=== PATIENT | male | born 1965 | race Asian ===

== ENCOUNTER 2017-07-14 10:02 | Observation (INO) | payer OTHER ==
[2017-07-14] MEDS ORDERED: FAMOTIDINE IV 20 MG/12 ML VIAL IVPB ONE (10:55)
[2017-07-14] MEDS ORDERED: methylPREDNISolone NA SUCC 125 MG/2 ML VIAL IVPUSH ONE (10:55)
--- NOTE | 2017-07-14 10:55 | PDOC ---
History of Present Illness - General History Source: Patient Exam Limitations: No Limitations - History of Present Illness Initial Comments: 07/14/17 11:05 Patient is a 51-year-old male with no past medical history, no known ALLERGIES, who presents to the emergency department today complaining of 2 days of facial swelling. Patient states that he ate some Arabic food 2 days ago and noticed that his face swelled up and he had a rash on his back and chest. He states that he took Benadryl every 6 hours yesterday (07/13/16) with little results. Denies difficulty breathing, shortness of breath, shortness of breath with exertion, and tongue swelling. States he has been able to eat without difficulty. Denies fevers, chills, chest pain, throat pain, ear pain, nausea, vomiting and diarrhea. <Marley Jose - Last Filed: 07/15/17 12:03> <Ping Zhang - Last Filed: 07/17/17 14:13> - General Chief Complaint: Allergic Reaction Stated Complaint: SWOLLEN FACE Time Seen by Provider: 07/14/17 10:20 Past History - Travel Traveled outside of the country in the last 30 days: No Close contact w/someone who was outside of country & ill: No - Past Medical History COPD: No DVT: No - Suicide/Smoking/Psychosocial Hx Smoking History: Never smoked Have you smoked in the past 12 months: No Information on smoking cessation initiated: No Hx Alcohol Use: No Drug/Substance Use Hx: No Substance Use Type: None <Marley Jose - Last Filed: 07/15/17 12:03> <Ping Zhang - Last Filed: 07/17/17 14:13> - Past Medical History Allergies/Adverse Reactions: Allergies Allergy/AdvReac Type Severity Reaction Status Date / Time No Known Allergies Allergy Verified 07/14/17 10:03 Home Medications: Ambulatory Orders Glipizide [Glipizide Xl] 2.5 mg PO BID 07/14/17 Metformin HCl 1,000 mg PO BID 07/14/17 Simvastatin 20 mg PO DAILY 07/14/17 Amlodipine Besylate [Norvasc -] 5 mg PO DAILY 30 Days #50 tablet 07/16/17 Metoprolol Succinate [Toprol XL -] 25 mg PO DAILY tab.sr.24h 07/16/17 Metoprolol Succinate [Toprol XL -] 25 mg PO DAILY 30 Days #30 tab.sr.24h MDD 1 07/16/17 hydrOXYzine HCL [Atarax -] 25 mg PO TID PRN 7 Days #20 tablet MDD 3 07/16/17 Review of Systems - Review of Systems Able to Perform ROS?: Yes Comments:: 07/14/17 11:07 CONSTITUTIONAL: Absent: fever, chills, diaphoresis, generalized weakness, malaise, loss of appetite HEENT: Absent: rhinorrhea, nasal congestion, throat pain, throat swelling, difficulty swallowing, mouth swelling, ear pain, eye pain, visual Changes CARDIOVASCULAR: Absent: chest pain, loss of consciousness, palpitations, irregular heart rate, peripheral edema RESPIRATORY: Absent: cough, shortness of breath, dyspnea with exertion, orthopnea, wheezing, stridor, hemoptysis GASTROINTESTINAL: Absent: abdominal pain, abdominal distension, nausea, vomiting, diarrhea, constipation, melena, hematochezia GENITOURINARY: Absent: dysuria, frequency, urgency, hesitancy, hematuria, flank pain, genital pain MUSCULOSKELETAL: Absent: myalgia, arthralgia, joint swelling SKIN: Present: Facial swelling, rash Absent: rash, itching, pallor HEMATOLOGIC/IMMUNOLOGIC: Absent: easy bleeding, easy bruising, lymphadenopathy, frequent infections ENDOCRINE: Absent: unexplained weight gain, unexplained weight loss, heat intolerance, cold intolerance NEUROLOGIC: Absent: headache, focal weakness or paresthesias, dizziness, unsteady gait, seizure, mental status changes, bladder or bowel incontinence PSYCHIATRIC: Absent: anxiety, depression, suicidal or homicidal ideation, hallucinations. Is the patient limited Kyrgyz proficient: No <Marley Jose - Last Filed: 07/15/17 12:03> *Physical Exam - Vital Signs Last Vital Signs Temp Pulse Resp BP Pulse Ox 98.2 F 118 H 18 159/92 100 07/14/17 10:05 07/14/17 10:05 07/14/17 10:05 07/14/17 10:05 07/14/17 10:05 - Physical Exam Comments: 07/14/17 11:07 GENERAL: Well developed, well nourished. Awake and alert. No acute distress. HEENT: Normocephalic, atraumatic. PERRLA, EOMI. No conjunctival pallor. Sclera are non- icteric. Moist mucous membranes. Oropharynx with mild swelling to the uvula. No tongue swelling. Ears grossly swollen. NECK: Supple. Grossly swollen anteriorly and posteriorly. Full ROM. No JVD. Carotid pulses 2+ and symmetric, without bruits. No thyromegaly. No lymphadenopathy. CARDIOVASCULAR: Regular rate and rhythm. No murmurs, rubs, or gallops. Distal pulses are 2+ and symmetric. PULMONARY: No evidence of respiratory distress. Lungs clear to auscultation bilaterally. No wheezing, rales or rhonchi. ABDOMINAL: Soft. Non-tender. Non-distended. No rebound or guarding. No organomegaly. Normoactive bowel sounds. MUSCULOSKELETAL Normal range of motion at all joints. No bony deformities or tenderness. No CVA tenderness. EXTREMITIES: No cyanosis. No clubbing. No edema. No calf tenderness. SKIN: Warm and dry. Normal capillary refill. Erythematous rash to chest and upper back , forearm's bilaterally. No jaundice. NEUROLOGICAL: Alert, awake, appropriate. Cranial nerves 2-12 intact. No deficits to light touch and temperature in face, upper extremities and lower extremities. No motor deficits in the in face, upper extremities and lower extremities. Normoreflexic in the upper and lower extremities. Normal speech. Toes are down- going bilaterally. Gait is normal without ataxia. PSYCHIATRIC: Cooperative. Good eye contact. Appropriate mood and affect. <Marley Jose - Last Filed: 07/15/17 12:03> - Vital Signs Last Vital Signs Temp Pulse Resp BP Pulse Ox 98.2 F 118 H 18 159/92 100 07/14/17 10:05 07/14/17 10:05 07/14/17 10:05 07/14/17 10:05 07/14/17 10:05 <Ping Zhang - Last Filed: 07/17/17 14:13> ED Treatment Course - LABORATORY CBC & Chemistry Diagram: 07/15/17 06:55 07/15/17 06:55 <Marley Jose - Last Filed: 07/15/17 12:03> - LABORATORY CBC & Chemistry Diagram: 07/16/17 07:00 07/16/17 07:00 - ADDITIONAL ORDERS Additional order review: Laboratory Results 07/14/17 11:04 Sodium 136 Potassium 4.5 Chloride 101 Carbon Dioxide 26 Anion Gap 9 BUN 14 Creatinine 0.9 Creat Clearance w eGFR > 60 Random Glucose 366 H* Calcium 8.8 Total Bilirubin 0.7 AST 19 ALT 61 Alkaline Phosphatase 102 Total Protein 7.5 Albumin 3.9 07/14/17 11:04 RBC 5.38 MCV 84.7 MCHC 32.8 RDW 13.0 MPV 9.3 Neutrophils % 59.1 Lymphocytes % 22.1 Monocytes % 8.6 Eosinophils % 10.0 H Basophils % 0.2 - Medications Given in the ED: ED Medications Discontinued Medications Generic Name Dose Route Start Last Admin Trade Name Freq PRN Reason Stop Dose Admin Diphenhydramine HCl 50 mg 07/14/17 10:55 07/14/17 11:05 Benadryl Injection - IVPUSH 07/14/17 10:56 50 mg ONCE ONE Administration Famotidine 20 mg in 12 mls @ 144 mls/hr 07/14/17 10:55 07/14/17 11:32 Pepcid 20 Mg/12 Ml Push IVPB 07/14/17 10:59 144 mls/hr ONCE ONE Administration Sodium Chloride 1,000 mls @ 1,000 mls/hr 07/14/17 10:56 07/14/17 11:00 Normal Saline - IV 07/14/17 11:55 1,000 mls/hr ASDIR STA Administration Insulin Human Regular 5 units 07/14/17 12:33 07/14/17 12:48 Novolin R Vial *For Ivpush Or Iv Drip Only* IVPUSH 07/14/17 12:34 5 units ONCE ONE Administration Methylprednisolone Sodium Succinate 125 mg 07/14/17 10:55 07/14/17 11:15 Solu-Medrol - IVPUSH 07/14/17 10:56 125 mg ONCE ONE Administration <Ping Zhang - Last Filed: 07/17/17 14:13> Medical Decision Making - Medical Decision Making 07/14/17 11:09 Patient is a 51-year-old male with no past medical history, no known ALLERGIES who presents with gross facial/neck swelling for 2 days. Given mild uvular swelling we will keep the patient for observation for 6 hours. We'll also give antihistamines. Patient is currently stable in the emergency department and afebrile. 1.CBC, CMP 2.IV Solu-Medrol, IV Benadryl, Pepcid 3.IV fluids 4.reevaluate 07/14/17 12:37 Lab called with glucose of 366. Pt does not have history of diabetes. Will administer a second liter of fluids and 5 units of Iv insulin. Facial swelling relatively unchanged at this time. 07/14/17 15:46 Facial swelling improved, however swelling of the neck still present. Uvula appears better at this time. Pt. resting comfortably, VSS, breathing easily. 07/14/17 17:[address] Martínez[address] Dr[address] Garlanded financial institution branch manager for him. Spoke with Dr. Ramey and states will call back shortly 07/14/17 18:[address] Ramey. Case discussed and agreed to place patient in observation for further management of his facial edema. 50mg Benadryl given at this time. <Marley Jose - Last Filed: 07/15/17 12:03> *DC/Admit/Observation/Transfer - Discharge Dispostion Admit: Yes <Marley Jose - Last Filed: 07/15/17 12:03> - Attestations Physician Attestion: 07/14/17 13:02 Examined at bedside with BRIANA Jose. Pt with significant swelling of face, ears , neck. Also with slight swelling of uvula, but with patent airway. Will observe in ED for at least 6 hrs. If improved will DC, if not, will place on obs for allergic reaction. 07/14/17 17:22 Pt with continued swelling of the neck and ears. Will plan for obs. <Ping Zhang - Last Filed: 07/17/17 14:13> Diagnosis at time of Disposition: Facial edema Allergic reaction Qualifiers: Encounter type: initial encounter Qualified Code(s): T78.40XA - Allergy, unspecified, initial encounter - Discharge Dispostion Disposition: HOME Condition at time of disposition: Stable
[2017-07-14] MEDS ORDERED: SODIUM CHLORIDE 1,000 ML IV STA ×2 (10:56→12:33)
[2017-07-14] MEDS ORDERED: FAMOTIDINE 20 MG/50 ML IVPB 20 MG/50 ML MG IVPB ONE (11:10)
[2017-07-14] MEDS ORDERED: methylPREDNISolone NA SUCC 125 MG/2 ML VIAL ONE (11:10)
[2017-07-14 11:13] LABS: BASO % 0.2 % (0-2.0); HEMATOCRIT 45.6 % (35.4-49); LYMPH % 22.1 % (8-40); MCH 27.8 pg (25.7-33.7); MCHC 32.8 g/dl (32.0-35.9); MEAN CELL VOLUME 84.7 fl (80-96); MEAN PLT VOLUME 9.3 fl (7.5-11.1); MONO % 8.6 % (3.8-10.2); NEUT % 59.1 % (42.8-82.8); PLATELET COUNT 285 K/MM3 (134-434); RBC 5.38 M/mm3 (4.00-5.60); WHITE BLOOD COUNT 10.1 K/mm3 (4.0-10.0)
[2017-07-14 12:02] LABS: ALBUMIN 3.9 g/dl (3.4-5.0); ANION GAP 9 (8-16); BLOOD UREA NITROGEN 14 mg/dL (7-18); CALCIUM 8.8 mg/dL (8.5-10.1); CHLORIDE 101 mmol/L (98-107); CO2 26 mmol/L (21-32); POTASSIUM 4.5 mmol/L (3.5-5.1); SGPT/ALT 61 U/L (12-78); SODIUM 136 mmol/L (136-145)
[2017-07-14 12:04] LABS: ALK PHOS 102 U/L (45-117); BILIRUBIN,TOTAL 0.7 mg/dL (0.2-1.0); CREATININE 0.9 mg/dL (0.7-1.3); SGOT/AST 19 U/L (15-37); TOT PROT 7.5 g/dl (6.4-8.2)
[2017-07-14 12:33] LABS: GLUCOSE,RANDOM 366 mg/dL (74-106)
[2017-07-14] MEDS ORDERED: INSULIN REGULAR HUMAN 100 UNITS/ML *VIAL IVPUSH ONE (12:33)
[2017-07-14] MEDS ORDERED: INSULIN REGULAR HUMAN 100 UNITS/ML *VIAL ONE ×2 (12:42→12:44)
[2017-07-14] MEDS: SODIUM CHLORIDE 1,000 ML IV SCH (19:17)
--- NOTE | 2017-07-14 21:16 | HP ---
Admitting History and Physical - Primary Care Physician PCP: Richa Martínez - Admission Chief Complaint: Facial swelling and erythema History of Present Illness: 51 yrs old man , obese H/O T2DM, HTN, no known food, medication or envioronmental allergies, present to ED with 1 day H/O erythematoush rash, swelling and itching , started yesterday am , initially it was on trunk gradually extend around neck, face, ear lobule, lips, no tongue swellings, difficulty in swallowing, SOB or feeling fullness in the throat as per patient, night before on Monday PM patient had Chines food containing shrimps,in the Ed patient received Famotidine, IV solumedrol, Benadry but remained symptomatic so admitted for further management, at the time of examination denies any SOB, Chest Pain, palpitation, SOB, throat congestion , drooling or wheezing. History Source: Patient Limitations to Obtaining History: No Limitations - Past Medical History Cardiovascular: Yes: HTN Endocrine: Yes: Diabetes Insipidus - Smoking History Smoking history: Never smoked Have you smoked in the past 12 months: No - Alcohol/Substance Use Hx Alcohol Use: No - Social History Usual Living Arrangement: Yes: With Spouse ADL: Independent History of Recent Travel: No Home Medications - Allergies Allergies/Adverse Reactions: Allergies Allergy/AdvReac Type Severity Reaction Status Date / Time No Known Allergies Allergy Verified 07/14/17 10:03 - Home Medications Home Medications: Ambulatory Orders Glipizide [Glipizide Xl] 2.5 mg PO BID 07/14/17 Metformin HCl 1,000 mg PO BID 07/14/17 Simvastatin 20 mg PO DAILY 07/14/17 Amlodipine Besylate [Norvasc -] 5 mg PO DAILY 30 Days #50 tablet 07/16/17 Metoprolol Succinate [Toprol XL -] 25 mg PO DAILY tab.sr.24h 07/16/17 Metoprolol Succinate [Toprol XL -] 25 mg PO DAILY 30 Days #30 tab.sr.24h MDD 1 07/16/17 hydrOXYzine HCL [Atarax -] 25 mg PO TID PRN 7 Days #20 tablet MDD 3 07/16/17 Family Disease History - Family Disease History Family History: Unremarkable Physical Examination Vital Signs: Vital Signs Temperature 98.5 F 07/14/17 14:20 Pulse Rate 119 H 07/14/17 18:59 Respiratory Rate 20 07/14/17 18:59 Blood Pressure 150/85 07/14/17 18:59 O2 Sat by Pulse Oximetry (%) 98 07/14/17 18:59 Middle aged man not in distress still c/o erythema around shoulder and neck HEENT: Diffuse erythma around trunk, back and neck with ,swelling of ear lobule NECK: Diffuse erythema CHEST: CTA B/L CVS: SaS2 R no m/g/r ABD: No distention, non tender Bs + EXT: diffuse erythematous rash 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 Constitutional: Yes: Well Nourished, No Distress, Anxious Eyes: Yes: Conjunctiva Clear, EOM Intact Neck: Yes: Supple, Trachea Midline Cardiovascular: Yes: Regular Rate and Rhythm, S1, S2 Respiratory: Yes: CTA Bilaterally Gastrointestinal: Yes: Normal Bowel Sounds, Soft ...Rectal Exam: Yes: Deferred Labs: CBC, BMP 07/14/17 11:04 07/14/17 11:04 Laboratory Results - last 24 hr 07/14/17 07/14/17 11:04 11:04 WBC 10.1 H RBC 5.38 Hgb 15.0 Hct 45.6 MCV 84.7 MCH 27.8 MCHC 32.8 RDW 13.0 Plt Count 285 MPV 9.3 Neutrophils % 59.1 Lymphocytes % 22.1 Monocytes % 8.6 Eosinophils % 10.0 H Basophils % 0.2 Sodium 136 Potassium 4.5 Chloride 101 Carbon Dioxide 26 Anion Gap 9 BUN 14 Creatinine 0.9 Creat Clearance w eGFR > 60 Random Glucose 366 H* Calcium 8.8 Total Bilirubin 0.7 AST 19 ALT 61 Alkaline Phosphatase 102 Total Protein 7.5 Albumin 3.9 Problem List - Problems (1) Urticaria Assessment/Plan: Cont benadryl, famotidine observe for airways Code(s): L50.9 - URTICARIA, UNSPECIFIED (2) Uncontrolled diabetes mellitus Assessment/Plan: hold Po Meds cont correction dose insulin F/U HBA1C level Code(s): E11.65 - TYPE 2 DIABETES MELLITUS WITH HYPERGLYCEMIA Qualifiers: Diabetes mellitus type: type 2 (3) HTN (hypertension) Assessment/Plan: Add amlodipine Hold benzepril Code(s): I10 - ESSENTIAL (PRIMARY) HYPERTENSION Qualifiers: Hypertension type: essential hypertension Qualified Code(s): I10 - Essential (primary) hypertension (4) Obesity Assessment/Plan: F/U as out patient, nutritional counselling Code(s): E66.9 - OBESITY, UNSPECIFIED Qualifiers: Body mass index: BMI 32.0-32.9
[2017-07-14] MEDS: FAMOTIDINE 20 MG/50 ML IVPB 20 MG/50 ML MG IVPB SCH (22:44)
[2017-07-14 23:09] VITALS: BMI 35.7
[2017-07-15] MEDS ORDERED: diphenhydrAMINE HCL 25 MG CAPSULE (FP) PO PRN (01:07)
[2017-07-15] MEDS: INSULIN SLIDING SCALE (NOVOLOG) 1 VIAL SQ SCH ×3 (06:01→16:41)
[2017-07-15 08:14] LABS: BASO % 0.1 % (0-2.0); EOS % 0.6 % (0-4.5); HEMATOCRIT 40.4 % (35.4-49); LYMPH % 13.3 % (8-40); MCH 27.1 pg (25.7-33.7); MCHC 32.1 g/dl (32.0-35.9); MEAN CELL VOLUME 84.4 fl (80-96); MEAN PLT VOLUME 9.8 fl (7.5-11.1); MONO % 7.5 % (3.8-10.2); NEUT % 78.5 % (42.8-82.8); PLATELET COUNT 265 K/MM3 (134-434); RBC 4.79 M/mm3 (4.00-5.60); RDW 12.8 % (11.9-15.9); WHITE BLOOD COUNT 16.8 K/mm3 (4.0-10.0)
[2017-07-15 08:42] LABS: ANION GAP 10 (8-16); BLOOD UREA NITROGEN 10 mg/dL (7-18); CALCIUM 8.7 mg/dL (8.5-10.1); CHLORIDE 107 mmol/L (98-107); CO2 23 mmol/L (21-32); GLUCOSE,RANDOM 174 mg/dL (74-106); POTASSIUM 4.1 mmol/L (3.5-5.1); SODIUM 140 mmol/L (136-145)
[2017-07-15 08:53] LABS: CREATININE 0.7 mg/dL (0.7-1.3)
[2017-07-15] MEDS ORDERED: FLU VACCINE QUAD 60 MCG/0.5 ML (MDV 17-18) IM ONE (09:00)
[2017-07-15] MEDS: FAMOTIDINE 20 MG/50 ML IVPB 20 MG/50 ML MG IVPB SCH ×2 (12:41→21:25)
[2017-07-15] MEDS: SODIUM CHLORIDE 1,000 ML IV SCH ×2 (12:41→21:27)
--- NOTE | 2017-07-15 19:48 | PN ---
Progress Note, Physician Chief Complaint: feels improved - Current Medication List Current Medications: Active Medications Diphenhydramine HCl (Benadryl -) 25 mg PO Q6H PRN PRN Reason: FOR ITCHING Famotidine/Sodium Chloride (Pepcid 20 Mg Premixed Ivpb -) 20 mg in 50 mls @ 100 mls/hr IVPB BID ZAHEER Last Admin: 07/15/17 12:41 Dose: 100 mls/hr Sodium Chloride (Normal Saline -) 1,000 mls @ 75 mls/hr IV ASDIR [facility] Last Admin: 07/15/17 12:41 Dose: 75 mls/hr Insulin Aspart (Novolog Vial Sliding Scale -) 1 vial SQ TIDAC ZAHEER PRN Reason: Protocol Last Admin: 07/15/17 16:41 Dose: 4 unit - Objective Vital Signs: Vital Signs Temperature 98.2 F 07/15/17 19:01 Pulse Rate 107 H 07/15/17 19:01 Respiratory Rate 21 07/15/17 19:01 Blood Pressure 150/88 07/15/17 19:01 O2 Sat by Pulse Oximetry (%) 99 07/15/17 10:00 Middle aged man not in distress still c/o erythema around shoulder and neck HEENT: Diffuse erythma around trunk, back and neck with ,swelling of ear lobule NECK: Diffuse erythema CHEST: CTA B/L CVS: SaS2 R no m/g/r ABD: No distention, non tender Bs + EXT: diffuse erythematous rash 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: 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 non focal Labs: CBC, BMP 07/15/17 06:55 07/15/17 06:55 Problem List - Problems (1) Urticaria Assessment/Plan: Cont benadryl, famotidine observe for airways Code(s): L50.9 - URTICARIA, UNSPECIFIED (2) Uncontrolled diabetes mellitus Assessment/Plan: hold Po Meds cont correction dose insulin F/U HBA1C level Code(s): E11.65 - TYPE 2 DIABETES MELLITUS WITH HYPERGLYCEMIA Qualifiers: Diabetes mellitus type: type 2 (3) HTN (hypertension) Assessment/Plan: Add amlodipine Hold benzepril Code(s): I10 - ESSENTIAL (PRIMARY) HYPERTENSION Qualifiers: Hypertension type: essential hypertension Qualified Code(s): I10 - Essential (primary) hypertension (4) Obesity Assessment/Plan: F/U as out patient, nutritional counselling Code(s): E66.9 - OBESITY, UNSPECIFIED Qualifiers: Body mass index: BMI 32.0-32.9
[2017-07-15] MEDS ORDERED: hydrOXYzine HCL 25 MG TABLET (FP) PO PRN (19:50)
[2017-07-15] MEDS ORDERED: ATORVASTATIN CA 10 MG TABLET (FP) PO SCH (22:00)
[2017-07-16] MEDS: SODIUM CHLORIDE 1,000 ML IV SCH (06:16)
[2017-07-16] MEDS: INSULIN SLIDING SCALE (NOVOLOG) 1 VIAL SQ SCH ×2 (06:16→11:42)
[2017-07-16 08:06] LABS: ANION GAP 8 (8-16); BLOOD UREA NITROGEN 11 mg/dL (7-18); CALCIUM 8.1 mg/dL (8.5-10.1); CHLORIDE 107 mmol/L (98-107); CO2 24 mmol/L (21-32); CREATININE 0.7 mg/dL (0.7-1.3); GLUCOSE,RANDOM 157 mg/dL (74-106); POTASSIUM 4.1 mmol/L (3.5-5.1); SODIUM 139 mmol/L (136-145)
[2017-07-16 08:09] LABS: BASO % 0.6 % (0-2.0); EOS % 11.2 % (0-4.5); HEMATOCRIT 41.6 % (35.4-49); HEMOGLOBIN 13.7 GM/dL (11.7-16.9); LYMPH % 25.1 % (8-40); MCH 27.6 pg (25.7-33.7); MEAN CELL VOLUME 83.7 fl (80-96); MEAN PLT VOLUME 9.5 fl (7.5-11.1); MONO % 7.2 % (3.8-10.2); NEUT % 55.9 % (42.8-82.8); PLATELET COUNT 248 K/MM3 (134-434); RBC 4.97 M/mm3 (4.00-5.60); RDW 13.1 % (11.9-15.9); WHITE BLOOD COUNT 11.5 K/mm3 (4.0-10.0)
[2017-07-16] MEDS ORDERED: amLODIPine BESYLATE 5 MG TABLET (FP) PO SCH (10:00)
[2017-07-16] MEDS: FAMOTIDINE 20 MG/50 ML IVPB 20 MG/50 ML MG IVPB SCH (10:15)
[2017-07-16 10:52] VITALS: BP 148/80; PULSE 102; TEMP 98.6
[2017-07-16] MEDS ORDERED: INSULIN (NOVOLOG) ASPART 100 UNITS/ML 10ML VIAL ONE (11:57)
--- NOTE | 2017-07-16 13:11 | DS ---
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 non focal Labs: CBC, BMP 07/16/17 07:00 07/16/17 07:00 Discharge Summary Reason For Visit: ALLERGIC REACTION EDEMA OF FACE Current Active Problems Allergic reaction (Acute) Facial edema (Acute) HTN (hypertension) (Acute) Obesity (Acute) Uncontrolled diabetes mellitus (Acute) Urticaria (Acute) Hospital Course: 51 yrs old man with H/O HTn, Obesity T2DM, admitted with severe angiedem aof case and trunk after eating maori food, remained symptomativc in the Ed despite few hours observation on antialrgic meds admitted for close observation , patient was on Benazepril so discontinued ad added Metoprolol for Bp control responded to Atrax and Famotidine imprived is being Dc Home. Condition: Stable - Instructions Diet, Activity, Other Instructions: Diabetic Diet Referrals: Richa Martínez MD [Primary Care Provider] - 1 Week Disposition: HOME - Home Medications Comprehensive Discharge Medication List: Ambulatory Orders Glipizide [Glipizide Xl] 2.5 mg PO BID 07/14/17 Metformin HCl 1,000 mg PO BID 07/14/17 Simvastatin 20 mg PO DAILY 07/14/17 Amlodipine Besylate [Norvasc -] 5 mg PO DAILY 30 Days #50 tablet 07/16/17 hydrOXYzine HCL [Atarax -] 25 mg PO TID PRN 7 Days #20 tablet MDD 3 07/16/17
[2017-07-16] MEDS ORDERED: metoPROLOL SUCCINATE 25 MG TAB.SR.24H (FP) PO SCH (14:15)
[2017-07-16] MEDS ORDERED: metoPROLOL SUCCINATE 25 MG TAB.SR.24H (FP) PO ONE (14:30)
--- NOTE | 2017-07-16 16:52 | EKG ---
Test Reason : Blood Pressure : / mmHG Vent. Rate : 103 BPM Atrial Rate : 103 BPM P-R Int : 138 ms QRS Dur : 104 ms QT Int : 340 ms P-R-T Axes : 041 006 031 degrees QTc Int : 445 ms SINUS TACHYCARDIA OTHERWISE NORMAL ECG NO PREVIOUS ECGS AVAILABLE Confirmed by ALESIA KAMINSKI MD ([id number]) on 07/16/2017 4:52:23 PM Referred By: Stephane TOBIN Confirmed By:ALESIA KAMINSKI MD
[2017-07-16] MEDS ORDERED: RANITIDINE HCL 150 MG TABLET (FP) PO SCH (22:00)
[2017-07-17] MEDS ORDERED: metoPROLOL SUCCINATE 25 MG TAB.SR.24H (FP) PO SCH (10:00)
== END 2017-07-16 14:30 | disposition home or self-care (01) ==
LOC: JER 10:02 → JERBED 18:10 → J6S 20:01
PROVIDERS: ADMIT Internal Medicine; ATTEND Internal Medicine
PROC: 3E0333Z Introduction of Anti-inflammatory into Peripheral Vein, Percutaneous Approach (ICD-10-PCS; principal; 2017-07-14)
PROC: 3E033GC Introduction of Other Therapeutic Substance into Peripheral Vein, Percutaneous Approach (ICD-10-PCS; 2017-07-14)
PROC: 3E033VG Introduction of Insulin into Peripheral Vein, Percutaneous Approach (ICD-10-PCS; 2017-07-14)
PROC: 3E013VG Introduction of Insulin into Subcutaneous Tissue, Percutaneous Approach (ICD-10-PCS; 2017-07-14)
PROC: 3E0337Z Introduction of Electrolytic and Water Balance Substance into Peripheral Vein, Percutaneous Approach (ICD-10-PCS; 2017-07-14)
DX: T78.40XA Allergy, unspecified, initial encounter (principal); X58.XXXA Exposure to other specified factors, initial encounter; L50.9 Urticaria, unspecified; R22.0 Localized swelling, mass and lump, head; E11.65 Type 2 diabetes mellitus with hyperglycemia; I10 Essential (primary) hypertension; E66.9 Obesity, unspecified; Z68.35 Body mass index [BMI] 35.0-35.9, adult; Z79.84 Long term (current) use of oral hypoglycemic drugs
CPT/HCPCS: 36415; 80048; 80053; 82962; 83036; 84443; 85025; 90688; 93005; 93010; 96361; 96372; 96374; 96375; 96376; 99284-25; G0378

== ENCOUNTER 2024-02-29 04:27 | Day surgery (SDC) | payer OTHER ==
[2024-01-29 13:21] VITALS: BMI 32.3
[2024-02-29 12:02] VITALS: TEMP 98.7
[2024-02-29 12:25] VITALS: BP 111/79; PULSE 75; RESP 18
== END 2024-02-29 12:28 | disposition home or self-care (01) ==
LOC: JASU-ENDO 04:27
PROVIDERS: ATTEND Internal Medicine Gastroenterology
PROC: 0DJD8ZZ Inspection of Lower Intestinal Tract, Via Natural or Artificial Opening Endoscopic (ICD-10-PCS; principal; 2024-02-29 11:00)
DX: Z12.11 Encounter for screening for malignant neoplasm of colon (principal); K64.8 Other hemorrhoids
CPT/HCPCS: 82962